=== PATIENT | female | born 1990 | race Caucasian/White ===

== ENCOUNTER 2022-09-12 10:47 | Emergency (ER) | payer OTHER ==
[~2022-09-12] VITALS: Ht 157.5 cm; Wt 90.7 kg
[2022-09-12] MEDS ORDERED: AMOXICILLIN500 MG PO (11:09)
== END 2022-09-12 11:15 | disposition home or self-care (01) ==
LOC: FSED 11:09
DX: J02.9 Acute pharyngitis, unspecified (principal)
CPT/HCPCS: 99283